=== PATIENT | female | born 1980 ===

== ENCOUNTER 2024-09-23 06:25 | Day surgery (SDC) | payer BC ==
[~2024-09-23] VITALS: Ht 160 cm; Wt 62.2 kg
[2024-09-23] VITALS (7 sets, daily range): BP systolic 111–123; BP diastolic 77–92
[~2024-09-23 06:25] MED LIST: Lactated Ringer's 1,000 ML IV SCH
[2024-09-23] MEDS ORDERED: AMPDEX30CR (06:37)
[2024-09-23] MEDS ORDERED: FentaNYL Citrate 50 MCG/ML 2 ML Injection ONE (07:02)
[2024-09-23] MEDS ORDERED: propofoL 20 ML IV ONE (07:02)
[2024-09-23] MEDS ORDERED: Bupivacaine 0.5% HCl 5 MG/ML 30MLVIAL ONE (07:13)
[2024-09-23] MEDS ORDERED: Midazolam HCl 1MG / ML 2ML Vial ONE (07:18)
[2024-09-23] MEDS ORDERED: Midazolam HCl 1MG / ML 2ML Vial IV ONE (07:20)
[2024-09-23] MEDS ORDERED: Ketorolac Tromethamine 30mg Vial ONE (07:31)
[2024-09-23] MEDS ORDERED: Ondansetron HCl 2 MG / ML 2ML Vial ONE (07:31)
[2024-09-23] MEDS ORDERED: Dexamethasone Sod Phos 10 MG/ML 1ML VIAL ONE (07:31)
[2024-09-23] MEDS ORDERED: NS 100 ML IV ONE (07:37)
[2024-09-23] MEDS ORDERED: CeFAZolin Sodium 2,000 MG VIAL ONE (07:37)
[2024-09-23] MEDS ORDERED: HYDROcodone 5-APAP 325 TAB PO PRN (08:35)
--- NOTE | 2024-09-23 09:06 | NUR ---
RECEIVED REPORT FROM [facility]. PT REPORTS NO PAIN OR NAUSEA. INCISION REMAINS CLEAN DRY AND INTACT WITH DERMABOND IN PLACE. VSS. SEE EMAR. PT REPORTS "BEING COLD". AMADEO HUGGER TURNED ON AND PLACED INBETWEEN BLANKETS. PT TOLERATING WATER AND CRACKERS WELL. SPOUSE CALLED AND BROUGHT BACK TO BEDSIDE. Discharge instructions reviewed with patient. Patient verbalizes understanding. Copy given to patient to take home. SPOUSE ALSO VERBALIZED UNDERSTANDING. NO ADDITIONAL QUESTIONS AT THIS TIME. Discharged via wheelchair to private car for ride home WITH SPOUSE, ANDRESSA.
== END 2024-09-23 09:00 | disposition home or self-care (01) ==
LOC: ORSCMMR 06:25 → ORD 07:30 → ORSCMMR 09:00
PROVIDERS: Surgery
PROC: 0JB60ZZ Excision of Chest Subcutaneous Tissue and Fascia, Open Approach (ICD-10-PCS; principal; 2024-09-23 07:30)
DX: D17.1 Benign lipomatous neoplasm of skin and subcutaneous tissue of trunk (principal); F90.9 Attention-deficit hyperactivity disorder, unspecified type; F32.A Depression, unspecified; F41.1 Generalized anxiety disorder; Z79.899 Other long term (current) drug therapy
CPT/HCPCS: 88304; A9270; J0690; J1100; J1885; J2250; J2405; J2704; J3010; J7120